=== PATIENT | male | born 1995 | race Caucasian/White ===

== ENCOUNTER 2018-04-05 06:22 | Day surgery (SDC) | payer BC ==
[2018-04-05] MEDS ORDERED: PROPOFOL 200 MG INJ (07:00)
[2018-04-05] MEDS ORDERED: LIDOCAINE 2% (SDV) 5 ML INJ (07:00)
[2018-04-05] MEDS: BUPIVACAINE 0.5% (SDV) 30 ML INJ ×2 (07:10→08:45)
[2018-04-05] MEDS ORDERED: FENTAnyl 50 MCG/ML VIAL (07:55)
[2018-04-05] MEDS ORDERED: MIDAZOLAM 1 MG/ML 2 ML INJ (07:55)
[2018-04-05] MEDS ORDERED: CEFAZOLIN 1 GM INJ (08:02)
[2018-04-05] MEDS: LIDOCAINE 2% (MDV) 20 ML INJ (08:11)
== END 2018-04-05 10:09 | disposition home or self-care (01) ==
LOC: SDS 06:22
DX: L60.0 Ingrowing nail (principal); L03.032 Cellulitis of left toe; L03.031 Cellulitis of right toe; E66.9 Obesity, unspecified; Z68.34 Body mass index [BMI] 34.0-34.9, adult
CPT/HCPCS: 11750; 88304